=== PATIENT | male | born 1950 | race Asian ===

== ENCOUNTER 2020-06-12 06:13 | Inpatient (IN) | payer SELFPAY ==
[~2020-06-12] VITALS: Ht 152.4 cm; Wt 45.4 kg
--- NOTE | 2020-06-12 06:13 | NUR ---
PT BIBA ALS. TAKEN TO BED 10. DR. JUNE AND RT AT BEDSIDE
--- NOTE | 2020-06-12 06:15 | NUR ---
PT INTUBATED BY DR. JUNE. 7.5 ETT @ 25CM AT [facility]. PLACED ON CMV AV/VC 16, 450, +5, 100%. NO SIGNS OF RESPIRATORY DISTRESS. WILL CONTINUE TO MONITOR.
--- NOTE | 2020-06-12 06:18 | NUR ---
0618 ADMINISTERED 20MG ETOMIDATE IVP 0618 ADMINISTERED 100MG ROCURONIUM IVP.
--- NOTE | 2020-06-12 06:20 | NUR ---
OG TUBE PLACED. WAITING FOR CONFIRMATION OF XRAY AT THIS TIME.
[2020-06-12 06:23] VITALS: BP 101/62
[2020-06-12] MEDS ORDERED: INTUBATION KIT MC ONE (06:25)
[2020-06-12] MEDS ORDERED: PROPOFOL 1000 MG/100 ML PREMIX 100 ML IV ONE (06:25)
[2020-06-12] MEDS ORDERED: NACL 0.9% 1,000 ML IV ONE (06:25)
[2020-06-12 06:30] VITALS: BP 158/106
--- NOTE | 2020-06-12 06:35 | NUR ---
PROPOFOL DRIP INITIATED AT 10MCG/KG/HR.
--- NOTE | 2020-06-12 06:40 | NUR ---
PROPOFOL DRIP INCREASED TO 15MCG/KG/MIN . RASS -3 AT THIS TIME.
--- NOTE | 2020-06-12 06:41 | NUR ---
PER FAMILY PT HAD BEEN HAVING INTERMITTENT FEVERS FOR THE PAST 3 DAYS. FAMILY SAID PT WENT TO SLEEP AT 11 PM AND WAS NOT HAVING ANY SORT OF DISTRESS, THEY CHECKED ON HIM THIS MORNING AROUND 6 AND NOTICED HE WAS DIAPHORECTIC AND WAS STRUGGLING TO CATCH HIS BREATH, 911 WAS CALLED AND RESPONDED. LUNG SOUNDS DIMINSHED, PT ON BIPAP UPON ARRIVAL AT [place], SATING AT 60%. PT UNABLE TO SPEAK DUE TO SOB, WAS ABLE TO SHAKE HEAD YES AND NO. PT PLACED ON BEDSIDE MONITOR. BED IN LOWEST POSITION. MD AT BEDSIDE. IRIS NO HX
--- NOTE | 2020-06-12 06:43 | NUR ---
INTUBATED UPON ARRIVAL TO BED 10. TUBE SIZE 7.5 AT 25 TEETH. PT ON VENT, SETTINGS: R 16, VOL 450, PEAK 40, PEEP 5, O2 100%. RECEIVING PROPROFAL AT 15 MCG.
--- NOTE | 2020-06-12 06:43 | NUR ---
EKG PERFORMED AT BEDSIDE. EKG READS SINUS TACHYCARDIA @ 148
--- NOTE | 2020-06-12 06:49 | NUR ---
RADIOLOGY CALLED TO SPEAK WITH MD JUNE, NG TUB NEEDS TO BE INSERTED APPROX 5-7 CM.
--- NOTE | 2020-06-12 06:50 | NUR ---
PT'S CHHAYA [phone] OR [phone].
--- NOTE | 2020-06-12 07:03 | NUR ---
SOFT WRIST RESTRAINTS ADMINISTERED PER INTUBATION PROTOCOL.
[2020-06-12] MEDS ORDERED: ETOMIDATE 20 MG/10 ML VIAL IVP ONE (07:20)
[2020-06-12] MEDS ORDERED: DEXAMETHASONE 10 MG/ML VIAL IVP ONE (07:20)
[2020-06-12] MEDS ORDERED: ROCURONIUM 50 MG/5 ML VIAL IV ONE (07:20)
[2020-06-12] MEDS ORDERED: PROPOFOL 1000 MG/100 ML PREMIX 100 ML IV SCH (07:20)
--- NOTE | 2020-06-12 07:20 | NUR ---
Pt report given to BERNICE BEASLEY. Transfer of care at this time.
--- NOTE | 2020-06-12 07:21 | NUR ---
# 16 FR Gutiérrez catheteR utilizing sterile technique. Immediate return of 150 ml OF urine noted. Bedside drainage bag placed below level of bladder. Urine sample collected and sent to lab. Pt tolerated procedure
[2020-06-12 07:29] LABS: BASOPHILS % (AUTO) 0.3 % (0.0-2.0); HEMATOCRIT 43.8 % (36-52); HEMOGLOBIN 14.7 g/dL (12.0-18.0); LYMPHOCYTES # (AUTO) 1.4 K/uL (2.0-11.5); MEAN CORPUSCULAR HEMOGLOBIN 35 pg (27-31); MEAN CORPUSCULAR HGB CONC 34 g/dL (33-37); MEAN CORPUSCULAR VOLUME 103.3 fL (80-94); MONOCYTES # (AUTO) 0.3 K/uL (0.8-1.0); MONOCYTES % (AUTO) 3.5 % (1.7-9.3); NEUTROPHILS # (AUTO) 7.8 K/uL (1.8-7.7); NEUTROPHILS % (AUTO) 81.2 % (42.2-75.2); PLATELET COUNT (AUTO) 173 K/uL (140-450); RED BLOOD CELL COUNT(AUTO) 4.23 MIL/uL (4.20-6.10); RED CELL DISTRIBUTION WIDTH 12.9 % (11.6-13.7); WHITE BLOOD COUNT (AUTO) 9.6 K/uL (4.8-10.8)
[2020-06-12 07:37] LABS: APPEARANCE,URINE CLEAR (CLEAR); BILIRUBIN,URINE NEGATIVE (NEGATIVE); BLOOD, URINE 1+ (NEGATIVE); COLOR,URINE YELLOW (YELLOW); LEUKOCYTE ESTERASE ,URINE NEGATIVE (NEGATIVE); NITRITE, URINE NEGATIVE (NEGATIVE); UGLUCOSE NEGATIVE (NEGATIVE)
[2020-06-12] MEDS ORDERED: cefTRIAXone 1,000 MG VIAL ONE (07:41)
[2020-06-12 07:50] LABS: ALBUMIN 2.6 g/dL (3.4-5.0); ANION GAP 28.1 (8-16); CARBON DIOXIDE 14.2 mmol/L (21-32); CREATININE 2.1 mg/dL (0.6-1.3); POTASSIUM 4.3 mmol/L (3.5-5.1); PROTHROMBIN TIME 11.6 secs (10.8-13.4); TOTAL BILIRUBIN 0.5 mg/dL (0.0-1.0)
[2020-06-12] MEDS ORDERED: HEPARIN PER PHARMACY MC STA (09:21)
[2020-06-12] MEDS ORDERED: ASPIRIN 325 MG TAB NG ONE (09:25)
[2020-06-12] MEDS ORDERED: hePARIN / DEXT 5% PREMIX 250 ML IV ONE (09:25)
--- NOTE | 2020-06-12 09:33 | NUR ---
PER PHARMACY WILL NOT PERFORM CALCULATION FOR HEPARIN DRIP UNTIL PLACED BY ADMITTING DOCTOR. DR ALEX MADE AWARE
--- NOTE | 2020-06-12 09:50 | NUR ---
UNABLE TO ADMINISTER NGT MEDICATION UNTIL RESTOCK OF SYRINGE FOR NGT
[2020-06-12 09:57] LABS: C-REACTIVE PROTEIN QUANT 35.9 mg/dL (0.0-0.9)
--- NOTE | 2020-06-12 11:16 | NUR ---
PT EXTREMITIES COOL TO TOUCH, RECTAL TEMP 99.1
[2020-06-12] MEDS ORDERED: ACETAMINOPHEN 325 MG TAB PO PRN (11:40)
[2020-06-12] MEDS ORDERED: PROPOFOL 1000 MG/100 ML PREMIX 100 ML IV PRN (11:40)
[2020-06-12] MEDS ORDERED: ALBUTEROL HFA MDI 90 MCG/ACTUATION 8 GM INH PRN (11:40)
[2020-06-12] MEDS ORDERED: ONDANSETRON 4 MG/2 ML VIAL IM/IVP PRN (11:40)
[2020-06-12] MEDS ORDERED: ALBUTEROL SULFATE/IPRATROPIU 3 ML SOL IH PRN ×2 (11:40)
[2020-06-12] MEDS ORDERED: POTASSIUM CHLORIDE 10 MEQ TABER PO PRN (11:40)
[2020-06-12] MEDS ORDERED: HYDROcodone/APAP 7.5/325 MG 1 TAB PO PRN (11:40)
[2020-06-12] MEDS ORDERED: NOREPINEPHRINE 8 MG in DEXTROSE 5% 250 ML IV PRN (11:40)
[2020-06-12] MEDS ORDERED: DOCUSATE SODIUM 100 MG GELCAP PO PRN (11:40)
[2020-06-12] MEDS ORDERED: NACL 0.9% 1,000 ML IV SCH (11:40)
[2020-06-12 11:54] LABS: RBC,URINE 0-5 /HPF (0-5); WBC,URINE 0-5 /HPF (0-5)
[2020-06-12] MEDS ORDERED: HEPARIN PER PHARMACY MC PRN (11:55)
[2020-06-12] MEDS ORDERED: ALBUTEROL SULFATE/IPRATROPIU 3 ML SOL IH SCH ×2 (13:00→15:00)
[2020-06-12] MEDS ORDERED: hePARIN / DEXT 5% PREMIX 250 ML IV SCH (13:00)
[2020-06-12 13:16] LABS: LACTATE DEHYDROGENASE 352 U/L (85-227)
[2020-06-12 13:42] VITALS: BP 102/77
[2020-06-12 13:50] LABS: CHOL/HDL RATIO 4.5 (1-4.5); FREE T4 (FREE THYROXINE) 1.05 ng/dL (0.76-1.46); THYROID STIMULATING HORMONE 2.55 uIU/mL (0.34-3.74)
--- NOTE | 2020-06-12 14:01 | NUR ---
TELEPHONE READ-BACK ABG RESULTS TO DR. MCFARLAND. STATES TO CHANGE RATE TO 22 AND TIDAL VOLUME 400. REPEAT ABG IN 2 HRS. Addendum: 06/12/20 at 1543 by Wallace Davenport RT NOTIFIED DR. MCFARLAND. THAT PATIENT WAS GETTING 400 ON A SET VOLUME OF 450. AGREED TO KEEP VT SETTINGS 450.
[2020-06-12] MEDS ORDERED: ASPIRIN 325 MG TAB ONE (14:10)
[2020-06-12] MEDS ORDERED: CRUSHER, PILL MC ONE (14:10)
[2020-06-12 14:12] LABS: PROTHROMBIN TIME 11.7 secs (10.8-13.4)
[2020-06-12 14:43] LABS: RSV NEGATIVE (NEGATIVE)
--- NOTE | 2020-06-12 16:39 | NUR ---
DR BOURNE MADE AWARE PT BP IS 83/47, HR 89. PER DR BOURNE TO START 1L BOLUS OF NACL RIGHT NOW. PER DR BOURNE TO GET PICC LINE OR CONSULT FOR CENTRAL LINE. THEN TO LEVOPHED DOUBLE STRENGTH TITRATION.
--- NOTE | 2020-06-12 16:40 | NUR ---
1L BOLUS NACL ADMINISTRATION STARTED AT THIS TIME
--- NOTE | 2020-06-12 16:41 | NUR ---
CALLING ELMA NAIRMOTOR POOL DRIVER FOR PICC LINE NURSE
--- NOTE | 2020-06-12 17:08 | NUR ---
SPOKE TO CHHAYA FOR VERBAL CONSENT FOR PICC LINE, VERIFIED BY BERNICE BEASLEY AND IMELDA BEASLEY
--- NOTE | 2020-06-12 17:15 | NUR ---
PICC LINE NURSE AT BEDSIDE
[2020-06-12] MEDS ORDERED: NOREPINEPHRINE 8 MG in DEXTROSE 5% 250 ML IV SCH (17:20)
--- NOTE | 2020-06-12 17:33 | NUR ---
DOUBLE STRENGTH (8MG) NOREPINEPHRINE NOT STOCKED IN ER/ED, UNABLE TO GET FROM [facility] CLERK. PER DR STEFFEN SCOTT TO TITRATE 4MG NOREPINEPHRINE INSTEAD
[2020-06-12] MEDS ORDERED: NOREPINEPHRINE 4 MG in DEXTROSE 5% 250 ML IV SCH (17:35)
[2020-06-12] MEDS ORDERED: NOREPINEPHRINE 4 MG/4 ML VIAL IV ONE (17:37)
--- NOTE | 2020-06-12 17:40 | NUR ---
PICC LINE INSERTED BY PICC LINE NURSE, PER XRAY OKAY TO START USING PICC LINE
--- NOTE | 2020-06-12 17:52 | NUR ---
LEVOPHED 4MG DRIP STARTED @ 2 MCG/MIN - BP 82/40, HR 80
--- NOTE | 2020-06-12 17:52 | NUR ---
ON PICC LINE - LEVOPHED DRIP AND HEPARIN DRIP
--- NOTE | 2020-06-12 18:16 | NUR ---
LEVOPHED INCREASED TO 4 MCG/MIN - BP 83/53, HR 70
--- NOTE | 2020-06-12 18:27 | NUR ---
RECTAL TEMP 95.9, DR NEFF MADE AWARE - STATES TO START BEAR HUGGER, IF NOT AVAILABLE THEN BLANKETS PER DR NEFF TO TITRATE LEVOPHED TO KEEP MAP ABOVE 80
--- NOTE | 2020-06-12 18:38 | NUR ---
BP 104/51, HR 90 - LEVOPHED INCREASED TO 6 MCG/HR TO KEEP MAP > 80
--- NOTE | 2020-06-12 18:50 | NUR ---
STRONG PALPABLE FEMORAL PULSE FELT, BEAR HUGGER APPLIED AND 3 BLANKETS APPLIED TO PATIENT BODY BY THIS TIME
--- NOTE | 2020-06-12 19:02 | NUR ---
DR NEFF MADE AWARE OF TROP 7.678
--- NOTE | 2020-06-12 19:13 | NUR ---
PER LAB LATEST TROP VALUE OF 7.941 WAS DRAWN AT 1740
--- NOTE | 2020-06-12 19:15 | NUR ---
REPORT GIVEN TO ROLA BEASLEY, TRANSFER OF CARE AT THIS TIME
--- NOTE | 2020-06-12 19:15 | NUR ---
DR NEFF STATES TO SPEAK TO DR SENA REGARDING PT TROP LEVELS
[2020-06-12 19:25] LABS: PROTHROMBIN TIME 12.4 secs (10.8-13.4)
--- NOTE | 2020-06-12 19:29 | NUR ---
ONCALL STAFF PHYSICIAN CALLED PER DR NEFF REQUEST. AWAITING A CALL BACK AT THIS TIME
[2020-06-12] MEDS ORDERED: BUDESONIDE 0.5 MG/2 ML NEBU INH SCH (19:30)
[2020-06-12] MEDS ORDERED: BUDESONIDE 0.25 MG/2 ML NEBU INH SCH (19:30)
--- NOTE | 2020-06-12 19:30 | NUR ---
SEE PROPOFOL IV SPEADSHEET FOR UPDATED VITAL SIGNS.
--- NOTE | 2020-06-12 19:30 | NUR ---
Report received from GALE Welch for continuation of care.
--- NOTE | 2020-06-12 19:30 | NUR ---
Report received from GALE Welch for continuation of care.
--- NOTE | 2020-06-12 19:35 | NUR ---
SPOKE TO DR SENA - STATES TO KEEP PT ON HEPARIN DRIP, DOES NOT BELIEVE HE NEEDS TO BE TRANSFERED OUT. STATES MAYBE TO DO CT SCAN TO RULE OUT PE, DR NEFF MADE AWARE OF HIS RECOMMENDATIONS
--- NOTE | 2020-06-12 19:43 | NUR ---
per lab pt PTT 63.5 - per Heparin protocol no change at this time.
--- NOTE | 2020-06-12 20:27 | NUR ---
ABG result reported to DR MELISSA. DR MELISSA gave telephone order to increase Vt from 450 to 550 and obtain another ABG in the morning.
--- NOTE | 2020-06-12 20:53 | NUR ---
PT PROPOFOL DECREASED TO 10 MCG/KG/MIN. RASS -3.
--- NOTE | 2020-06-12 21:45 | NUR ---
RECTAL TEMP 96.3 .
--- NOTE | 2020-06-12 21:54 | NUR ---
DR. NEFF MADE AWARE OF SUCTIONING OF 60 CC OF DARK LIQUID FROM OG TUBE. PER DR. NEFF OKAY THAT HEPARIN DRIP HAS BEEN STOPPED . START PT ON SANTOSTATIN DRIP AND CONTINUE TO MONITOR PT.
[2020-06-12] MEDS ORDERED: DOPPLER MC ONE ×2 (21:58→22:01)
--- NOTE | 2020-06-12 21:58 | NUR ---
CODE BLUE INITIATED
--- NOTE | 2020-06-12 21:58 | NUR ---
SEE FADI CLAIRE INITIATED - SEE FADI CLAIRE RECORD & RESUSCITATION DOCUMENTATION TOOL
--- NOTE | 2020-06-12 22:18 | NUR ---
PT PRONOUNCED BY DR. Humberto ALFARO
--- NOTE | 2020-06-12 22:23 | NUR ---
SPOKE W/ ARMANI FROM [facility] , INCIDENT # [id number] . PER ARMANI , [facility] ANALYST WILL CALL W/ CASE # AND UPDATED INFORMATION.
--- NOTE | 2020-06-12 22:28 | NUR ---
SPOKE W/ ARMANI FROM [facility] - PT IS NOT ELIGIBLE AND CAN BE RELEASED. REF# [id number]
--- NOTE | 2020-06-12 22:38 | NUR ---
SPOKE W/ PT'S CHHAYA , SHE WILL BE COMING RIGHT NOW TO ER W/ DAUGHTER TO SPEAK W/ DOCTOR.
--- NOTE | 2020-06-12 22:55 | NUR ---
[facility] SPOKE WITH GALE ZARAGOZA
--- NOTE | 2020-06-12 22:55 | NUR ---
PER EDWIGE SLATER, [facility] SENIOR ARCHITECT : RELEASING BODY ,. PER EDWIGE, NO CASE NUMBER BUT MORTUARY TO REPORT , BODY RELEASED AT THIS TIME.
--- NOTE | 2020-06-13 04:48 | NUR ---
FAMILY DOES NOT HAVE A MORTUARY AT THIS TIME BUT WILL HAVE ONE TOMORROW. ADV FAMILY THAT WE WILL KEEP PT HERE IN [place] UNTIL WE RECEIVE MORTUARY INFORMATION.
--- NOTE | 2020-06-13 05:40 | NUR ---
PT BODY MOVED TO [facility]
--- NOTE | 2020-06-13 05:52 | NUR ---
PT TRANSPORTED TO [facility]
[2020-06-13 08:06] LABS: T4 (THYROXINE) 5.2 ug/dL (4.5-12.0)
[2020-06-13] MEDS ORDERED: AZITHROMYCIN 250 MG TAB PO SCH (09:00)
[2020-06-13] MEDS ORDERED: ASCORBIC ACID 500 MG TAB PO SCH (09:00)
[2020-06-13] MEDS ORDERED: ZINC SULF 220 MG CAP PO SCH (09:00)
[2020-06-13] MEDS ORDERED: DEXAMETHASONE 4 MG TAB PO SCH (09:00)
--- NOTE | 2020-06-14 17:53 | NUR ---
Covid results received from lab. Results = POSITIVE. Hard copy requested from lab and placed in infection controls mailbox.
== END 2020-06-12 22:18 | DRG 871 ==
LOC: MED 06:13 → MTU 11:53
PROVIDERS: ADMIT Emergency Medicine; ATTEND Emergency Medicine
PROC: 0BH17EZ Insertion of Endotracheal Airway into Trachea, Via Natural or Artificial Opening (ICD-10-PCS; principal; 2020-06-12)
PROC: 5A1935Z Respiratory Ventilation, Less than 24 Consecutive Hours (ICD-10-PCS; 2020-06-12)
PROC: 5A09357 Assistance with Respiratory Ventilation, Less than 24 Consecutive Hours, Continuous Positive Airway Pressure (ICD-10-PCS; 2020-06-12)
DX: A41.9 Sepsis, unspecified organism (principal); U07.1 COVID-19; J96.00 Acute respiratory failure, unspecified whether with hypoxia or hypercapnia; J12.89 Other viral pneumonia; N17.0 Acute kidney failure with tubular necrosis; I50.43 Acute on chronic combined systolic (congestive) and diastolic (congestive) heart failure; E87.1 Hypo-osmolality and hyponatremia; R77.8 Other specified abnormalities of plasma proteins; I46.9 Cardiac arrest, cause unspecified; Z98.49 Cataract extraction status, unspecified eye
CPT/HCPCS: 36415; 36600; 71045; 80053; 81001; 82550; 82728; 82803; 83036; 83605; 83615; 83880; 84436; 84439; 84443; 84479; 84484; 85025; 85379; 85384; 85610; 85730; 86140; 87040; 87086; 87420; 87804; 93005; 96365; 96366; 96375; 99291; J0696; J1100; J1644; J2704; J3490; J7060; U0003